=== PATIENT | male | born 1980 | race Caucasian/White ===

== ENCOUNTER 2019-03-20 17:01 | Emergency (ER) | payer MEDICAID ==
[~2019-03-20] VITALS: Ht 193 cm; Wt 99.3 kg
--- NOTE | 2019-03-20 17:57 | NUR ---
PT CAME FROM HOME BROUGHT IN TO ED W LEFT LEG DRESSING. POSSIBLE LACERATION. NOTED BILATERAL FOOT EDEMA. ELEVATED W PILLOW. PT'S ABDOMEN DISTENDED. IV 20G RAC LAC. BROTHER AT BEDSIDE.
[2019-03-20] MEDS ORDERED: LIDOCAINE 1%-EPI 1:100,000 20 ML VIAL ONE (18:13)
--- NOTE | 2019-03-20 18:20 | NUR ---
PT'S ASLEEP,AROUSABLE, VERBALLY ABUSIVE TO STAFF, DOESNT FOLLOW COMMANDS, YELLING, CURSING THE STAFF.
--- NOTE | 2019-03-20 18:20 | NUR ---
REMOVED DRESSING ON LEFT LEG. NOTED WOUND 3X2 CM. NOT ACTIVELY BLEEDING AT THIS TIME. CLEANS THE WOUND W SALINE. PREP FOR LAC REPAIR.
[2019-03-20 18:27] LABS: BASOPHILS # (AUTO) 0.1 /CMM (0.0-0.2); BASOPHILS % (AUTO) 0.7 % (0.0-2.0); EOSINOPHILS % (AUTO) 3.7 % (0.0-6.0); HEMATOCRIT 40 % (39-51); HEMOGLOBIN 13.5 g/dL (13.5-17.5); LYMPHOCYTES # (AUTO) 4.4 /CMM (0.8-4.8); MEAN CORPUSCULAR HGB CONC 34 g/dl (31.0-36.0); MEAN CORPUSCULAR VOLUME 91 fL (80-96); MONOCYTES % (AUTO) 9.9 % (2.0-12.0); NEUTROPHILS # (AUTO) 4.6 /CMM (1.8-8.9); NEUTROPHILS % (AUTO) 43.7 % (43.0-81.0); PLATELET COUNT (AUTO) 258 /CMM (150-450); RED BLOOD CELL COUNT(AUTO) 4.37 MIL/uL (4.5-6.0); WHITE BLOOD COUNT (AUTO) 10.4 K/uL (4.3-11.0)
[2019-03-20] MEDS ORDERED: IV NS 0.9% 1,000 ML BAG IV ONE ×2 (18:30→20:30)
[2019-03-20 18:32] LABS: CALCIUM, SERUM 8.5 mg/dL (8.5-10.1); CARBON DIOXIDE 23 mmol/L (21-32); CHLORIDE 107 mmol/L (98-107); CREATININE 1.4 mg/dL (0.6-1.3); GLUCOSE 154 mg/dL (74-106); POTASSIUM 3.8 mmol/L (3.5-5.1); SODIUM SERUM 136 mmol/L (136-145); UREA NITROGEN, BLOOD 10 mg/dL (7-18)
[2019-03-20 18:38] LABS: ALANINE AMINOTRANSFERASE 77 U/L (12-78); ALKALINE PHOSPHATASE 68 U/L (46-116); ASPARTATE AMINOTRANSFERASE 38 U/L (15-37); BILIRUBIN,DIRECT 0.1 mg/dL (0.0-0.2); BILIRUBIN,TOTAL 0.4 mg/dL (0.2-1.0); TOTAL PROTEIN, SERUM 6.4 g/dL (6.4-8.2)
--- NOTE | 2019-03-20 19:20 | NUR ---
TRANSFER CARE REPORT TO [facility]
[2019-03-20] MEDS ORDERED: BACITRACIN ZINC OINT PACKET 1 EA PACKET TP ONE (19:30)
--- NOTE | 2019-03-20 20:35 | NUR ---
end time for ns: [id number]
--- NOTE | 2019-03-20 20:45 | NUR ---
pt was picked up for ct scan. then received a call from radiology dpt reporting that the pt got agitated, stood up willing to leave and refused the CT. pt was caryl back to the room.
--- NOTE | 2019-03-20 20:53 | NUR ---
Patient does not wish to proceed with medical care recommended by Dr. Powell. Patient given information related to possible complications, up to and including , which could occur as a result of leaving the hospital at this time. Patient and son- in -law verbalized understanding of risks involved due to leaving against medical advice. Patient has signed AMA form. IV removed. Catheter intact and site benign. Pressure and 4x4 applied to site. No bleeding noted. VSS at this time. Md aware of the situation.
--- NOTE | 2019-03-20 20:55 | NUR ---
pt able to transfer himself from bed to w/c. pt was assisted to the car by w/c. Patient discharged to home . Written and verbal after care instructions given. Patient verbalizes understanding of instruction.
[2019-03-20 21:01] VITALS: BP 131/78
== END 2019-03-20 21:01 | disposition left against medical advice (07) ==
LOC: ER 17:05
DX: S81.802A Unspecified open wound, left lower leg, initial encounter (principal); F15.10 Other stimulant abuse, uncomplicated; R55 Syncope and collapse; F32.9 Major depressive disorder, single episode, unspecified; F90.9 Attention-deficit hyperactivity disorder, unspecified type; X58.XXXA Exposure to other specified factors, initial encounter; Y93.89 Activity, other specified; Y92.89 Other specified places as the place of occurrence of the external cause; Y99.8 Other external cause status
CPT/HCPCS: 36415; 71045; 80048; 80076; 84484; 85025; 85730; 93005; 96360; 96361; 99284; A6403; J3490; J7030

== ENCOUNTER 2021-11-24 14:21 | Emergency (ER) | payer OTHER ==
[~2021-11-24] VITALS: Ht 193 cm; Wt 141.1 kg
--- NOTE | 2021-11-24 14:30 | NUR ---
BIB [facility],C/O LEFT LEG PAIN 11/03,FELL OFF A LADDER YESTERDAY. NO APPARENT DEFORMITY NOTED. WILL CONTINUE TO MONITOR THE PATIENT.
--- NOTE | 2021-11-24 15:09 | NUR ---
X-RAY TECH AT THE BEDSIDE
[2021-11-24] MEDS ORDERED: IBUP-1957 PO (16:55)
--- NOTE | 2021-11-24 17:05 | NUR ---
CALLED [facility] AND SET UP BLS TRANSPORT ETA 1800
--- NOTE | 2021-11-24 19:06 | NUR ---
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
--- NOTE | 2021-11-24 19:07 | NUR ---
REPORT GIVEN TO AMBULANCE STAFF
--- NOTE | 2021-11-24 19:08 | NUR ---
Patient discharged to home in stable condition. Written and verbal after care instructions given. Patient verbalizes understanding of instruction.
[2021-11-24 19:11] VITALS: BP 135/86
== END 2021-11-24 19:11 | disposition home or self-care (01) ==
LOC: ER 14:22
DX: S80.12XA Contusion of left lower leg, initial encounter (principal); F32.A Depression, unspecified; Z60.2 Problems related to living alone; Z79.1 Long term (current) use of non-steroidal anti-inflammatories (NSAID); W11.XXXA Fall on and from ladder, initial encounter; Y93.89 Activity, other specified; Y92.89 Other specified places as the place of occurrence of the external cause; Y99.8 Other external cause status
CPT/HCPCS: 73564-TC; 73590-TC; 73610-TC; 93971-TC

== ENCOUNTER 2023-02-08 16:48 | Inpatient (IN) | payer OTHER ==
[~2023-02-08] VITALS: Ht 193 cm; Wt 131.1 kg
[~2023-02-08 16:48] MED LIST: CLIN300C12 PO; IBUP-1957 PO
[2023-02-08] MEDS ORDERED: IV NS 0.9% 1,000 ML BAG IV ONE (17:30)
[2023-02-08] MEDS ORDERED: ACETAMINOPHEN ES 500 MG TABLET PO ONE (17:30)
[2023-02-08] MEDS ORDERED: ACETAMINOPHEN ES 500 MG TABLET ONE (17:53)
[2023-02-08] MEDS ORDERED: HYDR25TA4 PO (18:06)
[2023-02-08] MEDS ORDERED: CEFTRIAXONE 1GM BAG (ER ONLY) 50 ML IV ONE (18:06)
[2023-02-08 18:11] LABS: BASOPHILS % (AUTO) 0.1 % (0.0-2.0); EOSINOPHILS # (AUTO) 0.1 K/uL (0.0-0.7); EOSINOPHILS % (AUTO) 0.3 % (0.0-6.0); HEMATOCRIT 42 % (39-51); LYMPHOCYTES # (AUTO) 2.2 K/uL (0.8-4.8); LYMPHOCYTES % (AUTO) 7.6 % (20.0-44.0); MEAN CORPUSCULAR HEMOGLOBIN 30 PG (26.0-33.0); MEAN CORPUSCULAR HGB CONC 33 g/dl (31.0-36.0); MEAN CORPUSCULAR VOLUME 90 fL (80-96); MONOCYTES # (AUTO) 1.9 K/uL (0.1-1.30); MONOCYTES % (AUTO) 6.4 % (2.0-12.0); NEUTROPHILS # (AUTO) 24.8 K/uL (1.8-8.9); NEUTROPHILS % (AUTO) 85.6 % (43.0-81.0); PLATELET COUNT (AUTO) 269 K/uL (150-450); RED BLOOD CELL COUNT(AUTO) 4.71 MIL/uL (4.5-6.0)
[2023-02-08 18:24] LABS: INR 1.06 (0.91-1.10); PARTIAL THROMBOPLASTIN TIME 28.8 SEC (24.3-34.3); PROTHROMBIN TIME 11.1 SECS (9.2-11.1)
[2023-02-08 18:29] LABS: CALCIUM, SERUM 8.8 mg/dL (8.5-10.1); CARBON DIOXIDE 28 mmol/L (21-32); CHLORIDE 101 mmol/L (98-107); CREATININE 1.1 mg/dL (0.6-1.3); GLUCOSE 108 mg/dL (74-106); LACTIC ACID 1.8 mmol/L (0.4-2.0); POTASSIUM 3.7 mmol/L (3.5-5.1); SODIUM SERUM 137 mmol/L (136-145); UREA NITROGEN, BLOOD 9 mg/dL (7-18)
[2023-02-08] MEDS ORDERED: AZITHROMYCIN 500 MG in IV D5W 250 ML IV ONE (18:30)
[2023-02-08] MEDS ORDERED: CEFTRIAXONE 1GM BAG (ER ONLY) 1 GM/50 ML PIGGYBACK IV ONE (18:30)
[2023-02-08 18:35] LABS: ALANINE AMINOTRANSFERASE 67 U/L (12-78); ALBUMIN 3.6 g/dL (3.4-5.0); ALKALINE PHOSPHATASE 98 U/L (46-116); ASPARTATE AMINOTRANSFERASE 37 U/L (15-37); BILIRUBIN,DIRECT 0.3 mg/dL (0.0-0.2); BILIRUBIN,TOTAL 1.2 mg/dL (0.2-1.0); TOTAL PROTEIN, SERUM 8.6 g/dL (6.4-8.2)
[2023-02-08 19:22] LABS: APPEARANCE,URINE CLEAR (CLEAR); BILIRUBIN,URINE NEGATIVE (NEGATIVE); BLOOD, URINE NEGATIVE Ery/uL (NEGATIVE); COLOR,URINE YELLOW (YELLOW); KETONES,URINE NEGATIVE (NEGATIVE); LEUKOCYTE ESTERASE ,URINE NEGATIVE (NEGATIVE); NITRITE, URINE NEGATIVE (NEGATIVE); PH,URINE 8.5 (5.0-8.0); PROTEIN,URINE 1+ mg/dl (NEGATIVE); UGLUCOSE NEGATIVE (NEGATIVE)
[2023-02-08 19:51] LABS: BAND % (MANUAL) 4 % (0.0-5.0); EOSINOPHILS % (MANUAL) 1 % (0-4); LYMPHOCYTES % (MANUAL) 8 % (16-48); MONOCYTES % (MANUAL) 4 % (0-11.0); NEUTROPHILS % (MANUAL) 83 (42-76); PLATELET ESTIMATE ADEQUATE
[2023-02-08 20:19] LABS: ADD URINE CULTURE NO; BACTERIA,URINE None seen /HPF (None Seen); MUCUS,URINE Few /LPF (None Seen); RBC,URINE NONE SEEN /HPF (0-2); SQUAMOUS EPITHELIAL CELL,UR 0-2 /HPF (None Seen); WBC,URINE 0-2 /HPF (0-3)
[2023-02-08 22:05] VITALS: BP 152/90; TEMP 102.5; O2SAT 92; O2SAT 94
[2023-02-08] MEDS: ENOXAPARIN SODIUM 40 MG/0.4 ML DISP.SYRIN SQ SCH ×2 (22:30→23:59)
[2023-02-08] MEDS ORDERED: IBUPROFEN 400 MG TABLET PO PRN (22:30)
[2023-02-08] MEDS: ACETAMINOPHEN 325 MG TABLET PO PRN (23:53)
[2023-02-08] MEDS: IV NS 0.9% 1,000 ML IV PRN (23:54)
[2023-02-09] MEDS: ACETAMINOPHEN 325 MG TABLET PO PRN ×3 (01:02→10:19)
[2023-02-09 04:00] VITALS: BP 155/91; TEMP 102.1; O2SAT 93
[2023-02-09 05:25] LABS: ABG BASE EXCESS 0.2 mmol/L; ABG OXYGEN SATURATION 96.6 % (92.0-98.5); ABG PCO2 32.8 mmHg (35.0-45.0); ABG PH 7.466 (7.350-7.450); ABG PO2 78.7 mmHg (75.0-100.0); ABG TOTAL HEMOGLOBIN 14.7 G/dL (13.5-18.0); AaDO2 139.9 mmHg; COHb 1.2 % (0.5-1.5); MetHb 0.2 % (0.0-1.5); O2Hb 95.2 % (94.0-97.0); SITE, ABG Left Radial
[2023-02-09] MEDS ORDERED: ACETAMINOPHEN 650 MG/SUPP.RECT RC PRN (05:30)
[2023-02-09 06:13] LABS: BASOPHILS % (AUTO) 0.2 % (0.0-2.0); EOSINOPHILS % (AUTO) 0.1 % (0.0-6.0); HEMATOCRIT 37 % (39-51); HEMOGLOBIN 12.6 g/dL (13.5-17.5); LYMPHOCYTES # (AUTO) 1.5 K/uL (0.8-4.8); LYMPHOCYTES % (AUTO) 6.9 % (20.0-44.0); MEAN CORPUSCULAR HEMOGLOBIN 30 PG (26.0-33.0); MEAN CORPUSCULAR HGB CONC 34 g/dl (31.0-36.0); MEAN CORPUSCULAR VOLUME 90 fL (80-96); MONOCYTES # (AUTO) 0.8 K/uL (0.1-1.30); NEUTROPHILS % (AUTO) 88.8 % (43.0-81.0); PLATELET COUNT (AUTO) 204 K/uL (150-450); RED BLOOD CELL COUNT(AUTO) 4.15 MIL/uL (4.5-6.0); RED CELL DISTRIBUTION WIDTH 13.9 % (11.5-15.0); WHITE BLOOD COUNT (AUTO) 21.3 K/uL (4.3-11.0)
[2023-02-09 06:40] LABS: CALCIUM, SERUM 7.7 mg/dL (8.5-10.1); MAGNESIUM 1.7 mg/dL (1.8-2.4); PHOSPHORUS 1.9 mg/dL (2.5-4.9); POTASSIUM 3.2 mmol/L (3.5-5.1)
[2023-02-09 08:00] VITALS: BP 125/75; TEMP 101; O2SAT 93
[2023-02-09] MEDS ORDERED: Z GUARD REMEDY 4 OZ OINT TP PRN (10:00)
[2023-02-09] MEDS: Z GUARD REMEDY 4 OZ OINT TP SCH (10:22)
[2023-02-09] MEDS ORDERED: POTASSIUM CHLORIDE 20 MEQ TAB.PRT.SR PO ONE (10:30)
[2023-02-09] MEDS ORDERED: MAGNESIUM OXIDE 400 MG TABLET PO ONE (10:30)
[2023-02-09] MEDS ORDERED: K PHOS NEUTRAL 250 MG TABLET PO ONE (11:30)
[2023-02-09 12:00] VITALS: BP 126/72; TEMP 100.7; O2SAT 93
[2023-02-09] MEDS: BACITRACIN ZINC OINT (15 GM) 15 GM TUBE TP SCH (12:50)
[2023-02-09 16:00] VITALS: BP 137/76; TEMP 97.1; O2SAT 93
[2023-02-09] MEDS: CEFTRIAXONE 1 G in IV D5W 50 ML IV SCH (17:51)
[2023-02-09] MEDS: IV NS 0.9% 1,000 ML IV PRN (17:51)
[2023-02-09] MEDS: AZITHROMYCIN 500 MG in IV D5W 250 ML IV SCH (17:51)
[2023-02-09] MEDS ORDERED: VANCOMYCIN 1 GM in IV D5W 250ml IV ONE ×3 (18:30→20:30)
[2023-02-09 20:00] VITALS: BP 133/78; TEMP 98.3; O2SAT 98
[2023-02-09] MEDS: ENOXAPARIN SODIUM 40 MG/0.4 ML DISP.SYRIN SQ SCH (21:05)
[2023-02-10] MEDS: VANCOMYCIN 1.25 GM in IV D5W 250 ML IV SCH ×3 (03:52→20:33)
[2023-02-10 04:00] VITALS: BP 135/72; TEMP 98.6; O2SAT 98
[2023-02-10 07:22] LABS: CREATININE 0.9 mg/dL (0.6-1.3); MAGNESIUM 2.1 mg/dL (1.8-2.4); POTASSIUM 3.9 mmol/L (3.5-5.1)
[2023-02-10] MEDS: Z GUARD REMEDY 4 OZ OINT TP SCH (08:05)
[2023-02-10] MEDS: OLANZAPINE 5 MG TABLET PO SCH ×2 (09:09→16:38)
[2023-02-10] MEDS: DIVALPROEX SODIUM 125 MG TABLET.DR PO SCH ×2 (09:12→20:36)
[2023-02-10 12:00] VITALS: BP 130/69; TEMP 98.7; O2SAT 98
[2023-02-10] MEDS: BACITRACIN ZINC OINT (15 GM) 15 GM TUBE TP SCH (12:30)
[2023-02-10 12:33] LABS: BARBITURATE, URINE NEGATIVE (NEGATIVE); BENZODIAZEPINE, URINE NEGATIVE (NEGATIVE); CANNABINOID, URINE NEGATIVE (NEGATIVE); COCCAINE, URINE NEGATIVE (NEGATIVE); OPIATE, URINE NEGATIVE (NEGATIVE); PHENCYCLIDINE SCREEN,URINE NEGATIVE (NEGATIVE)
[2023-02-10 12:52] LABS: AMPHETAMINE, URINE POSITIVE (NEGATIVE)
[2023-02-10] MEDS: CEFTRIAXONE 1 G in IV D5W 50 ML IV SCH (17:02)
[2023-02-10] MEDS: AZITHROMYCIN 500 MG in IV D5W 250 ML IV SCH (17:02)
[2023-02-10 20:00] VITALS: BP 158/103; TEMP 98.4; O2SAT 100
[2023-02-10] MEDS: ENOXAPARIN SODIUM 40 MG/0.4 ML DISP.SYRIN SQ SCH ×3 (20:36→21:00)
[2023-02-11 04:00] VITALS: BP 145/65; TEMP 98.2; O2SAT 98
[2023-02-11] MEDS: VANCOMYCIN 1.5 GM in IV D5W 500ml IV SCH ×3 (04:45→20:23)
[2023-02-11 06:24] LABS: BASOPHILS % (AUTO) 0.4 % (0.0-2.0); EOSINOPHILS # (AUTO) 0.5 K/uL (0.0-0.7); EOSINOPHILS % (AUTO) 4.7 % (0.0-6.0); HEMATOCRIT 43 % (39-51); HEMOGLOBIN 14.6 g/dL (13.5-17.5); LYMPHOCYTES # (AUTO) 2.8 K/uL (0.8-4.8); LYMPHOCYTES % (AUTO) 26.7 % (20.0-44.0); MEAN CORPUSCULAR HEMOGLOBIN 30 PG (26.0-33.0); MEAN CORPUSCULAR HGB CONC 34 g/dl (31.0-36.0); MEAN CORPUSCULAR VOLUME 89 fL (80-96); MONOCYTES # (AUTO) 1.1 K/uL (0.1-1.30); MONOCYTES % (AUTO) 10.4 % (2.0-12.0); NEUTROPHILS # (AUTO) 6.1 K/uL (1.8-8.9); NEUTROPHILS % (AUTO) 57.8 % (43.0-81.0); PLATELET COUNT (AUTO) 205 K/uL (150-450); RED CELL DISTRIBUTION WIDTH 13.8 % (11.5-15.0); WHITE BLOOD COUNT (AUTO) 10.5 K/uL (4.3-11.0)
[2023-02-11 06:50] LABS: CALCIUM, SERUM 8.8 mg/dL (8.5-10.1); CREATININE 0.7 mg/dL (0.6-1.3); POTASSIUM 3.9 mmol/L (3.5-5.1)
[2023-02-11] MEDS: OLANZAPINE 5 MG TABLET PO SCH ×2 (08:58→16:44)
[2023-02-11] MEDS: Z GUARD REMEDY 4 OZ OINT TP SCH (08:58)
[2023-02-11] MEDS: DIVALPROEX SODIUM 125 MG TABLET.DR PO SCH ×2 (08:58→21:24)
[2023-02-11] MEDS: IV NS 0.9% 1,000 ML IV PRN (11:50)
[2023-02-11 12:00] VITALS: BP 138/72; TEMP 98.5; O2SAT 98
[2023-02-11] MEDS: BACITRACIN ZINC OINT (15 GM) 15 GM TUBE TP SCH (13:23)
[2023-02-11] MEDS: CEFTRIAXONE 1 G in IV D5W 50 ML IV SCH (17:27)
[2023-02-11] MEDS: AZITHROMYCIN 500 MG in IV D5W 250 ML IV SCH (18:03)
[2023-02-11 20:00] VITALS: TEMP 97.6
[2023-02-11] MEDS: ENOXAPARIN SODIUM 40 MG/0.4 ML DISP.SYRIN SQ SCH (21:27)
[2023-02-12 04:00] VITALS: BP 128/70; TEMP 97.6
[2023-02-12] MEDS: VANCOMYCIN 1.5 GM in IV D5W 500ml IV SCH (04:00)
[2023-02-12] MEDS: IV NS 0.9% 1,000 ML IV PRN ×2 (04:45→15:38)
[2023-02-12] MEDS: Z GUARD REMEDY 4 OZ OINT TP SCH (09:01)
[2023-02-12] MEDS: DIVALPROEX SODIUM 125 MG TABLET.DR PO SCH ×2 (09:01→21:43)
[2023-02-12] MEDS: OLANZAPINE 5 MG TABLET PO SCH ×2 (09:01→17:14)
[2023-02-12 12:00] VITALS: BP_SYST 115; BP_SYST 128; BP_DIAS 70; BP_DIAS 98; TEMP 97.7; O2SAT 96; O2SAT 98
[2023-02-12] MEDS: BACITRACIN ZINC OINT (15 GM) 15 GM TUBE TP SCH (13:05)
[2023-02-12 20:00] VITALS: BP 128/70; TEMP 97.7; O2SAT 98
[2023-02-12] MEDS: ENOXAPARIN SODIUM 40 MG/0.4 ML DISP.SYRIN SQ SCH ×2 (21:00→21:42)
[2023-02-13 04:00] VITALS: BP 128/70; TEMP 97.7; O2SAT 98
[2023-02-13] MEDS: VANCOMYCIN 1.25 GM in IV D5W 250 ML IV SCH ×2 (09:00→17:13)
[2023-02-13] MEDS: OLANZAPINE 5 MG TABLET PO SCH ×2 (10:03→17:13)
[2023-02-13] MEDS: DIVALPROEX SODIUM 125 MG TABLET.DR PO SCH ×2 (10:03→21:10)
[2023-02-13] MEDS: BACITRACIN ZINC OINT (15 GM) 15 GM TUBE TP SCH (13:19)
[2023-02-13] MEDS: Z GUARD REMEDY 4 OZ OINT TP SCH (13:19)
[2023-02-13 17:25] LABS: CALCIUM, SERUM 8.8 mg/dL (8.5-10.1); CREATININE 0.7 mg/dL (0.6-1.3)
[2023-02-13 20:00] VITALS: BP 162/95; TEMP 98.2; O2SAT 98
[2023-02-13] MEDS: ENOXAPARIN SODIUM 40 MG/0.4 ML DISP.SYRIN SQ SCH (21:12)
[2023-02-14] MEDS: VANCOMYCIN 1.25 GM in IV D5W 250 ML IV SCH ×2 (00:38→09:06)
[2023-02-14 04:00] VITALS: BP 132/70; TEMP 97.8; O2SAT 96
[2023-02-14 06:42] LABS: CALCIUM, SERUM 6.9 mg/dL (8.5-10.1); CREATININE 0.5 mg/dL (0.6-1.3)
[2023-02-14 07:30] VITALS: BP 127/97; TEMP 98.7; O2SAT 94
[2023-02-14] MEDS: DIVALPROEX SODIUM 125 MG TABLET.DR PO SCH ×2 (09:06→21:39)
[2023-02-14] MEDS: OLANZAPINE 5 MG TABLET PO SCH ×2 (09:06→16:40)
[2023-02-14] MEDS ORDERED: FURO-145 PO (09:13)
[2023-02-14] MEDS ORDERED: SULF1TAB48 PO (09:13)
[2023-02-14] MEDS ORDERED: DIVA125T2 PO (09:13)
[2023-02-14] MEDS: Z GUARD REMEDY 4 OZ OINT TP SCH (09:19)
[2023-02-14] MEDS ORDERED: POTASSIUM CHLORIDE 20 MEQ TAB.PRT.SR PO ONE (10:00)
[2023-02-14] MEDS: BACITRACIN ZINC OINT (15 GM) 15 GM TUBE TP SCH (12:47)
[2023-02-14] MEDS: IV NS 0.9% 1,000 ML IV PRN (14:35)
[2023-02-14 16:00] VITALS: BP 134/101; TEMP 99.6; O2SAT 95
[2023-02-14 20:00] VITALS: BP 126/93; TEMP 99; O2SAT 94
[2023-02-14] MEDS: ENOXAPARIN SODIUM 40 MG/0.4 ML DISP.SYRIN SQ SCH (21:00)
[2023-02-14] MEDS: SULFAMETH/TRIMETH 800/160 MG 1 UDTAB TABLET PO SCH (21:39)
[2023-02-15 04:00] VITALS: BP 144/91; TEMP 98.1; O2SAT 97
[2023-02-15 08:00] VITALS: BP 130/60; TEMP 98.3; O2SAT 100
[2023-02-15 08:29] LABS: CREATININE 0.7 mg/dL (0.6-1.3)
[2023-02-15 08:33] LABS: CALCIUM, SERUM 8.8 mg/dL (8.5-10.1)
[2023-02-15] MEDS: DIVALPROEX SODIUM 125 MG TABLET.DR PO SCH ×2 (08:35→21:27)
[2023-02-15] MEDS: SULFAMETH/TRIMETH 800/160 MG 1 UDTAB TABLET PO SCH ×2 (08:35→21:27)
[2023-02-15] MEDS: OLANZAPINE 5 MG TABLET PO SCH ×3 (08:35→16:25)
[2023-02-15] MEDS: Z GUARD REMEDY 4 OZ OINT TP SCH (09:24)
[2023-02-15] MEDS: BACITRACIN ZINC OINT (15 GM) 15 GM TUBE TP SCH (12:21)
[2023-02-15 16:00] VITALS: BP 128/67; TEMP 98.7; O2SAT 100
[2023-02-15] MEDS: IV NS 0.9% 1,000 ML IV PRN (17:03)
[2023-02-15 20:00] VITALS: BP 147/99; TEMP 98.8; O2SAT 92
[2023-02-15] MEDS: ENOXAPARIN SODIUM 40 MG/0.4 ML DISP.SYRIN SQ SCH (21:00)
[2023-02-16 01:24] VITALS: BP 143/92; TEMP 98.5; O2SAT 94
[2023-02-16 08:00] VITALS: BP 149/67; TEMP 98.2; O2SAT 91
[2023-02-16] MEDS: SULFAMETH/TRIMETH 800/160 MG 1 UDTAB TABLET PO SCH (08:13)
[2023-02-16] MEDS: OLANZAPINE 5 MG TABLET PO SCH (08:13)
[2023-02-16] MEDS: DIVALPROEX SODIUM 125 MG TABLET.DR PO SCH (08:13)
[2023-02-16] MEDS: Z GUARD REMEDY 4 OZ OINT TP SCH (08:14)
== END 2023-02-16 09:00 | disposition left against medical advice (07) | DRG 720 ==
LOC: ER 16:55 → TELE1 21:23 → MEDSG1 02-09 11:55 → MED 02-16 00:15
PROVIDERS: ADMIT Nurse Practitioner Acute Care; ATTEND Nurse Practitioner Family
PROC: 05HB33Z Insertion of Infusion Device into Right Basilic Vein, Percutaneous Approach (ICD-10-PCS; principal; 2023-02-13)
DX: A41.9 Sepsis, unspecified organism (principal); J96.01 Acute respiratory failure with hypoxia; G93.41 Metabolic encephalopathy; T67.01XA Heatstroke and sunstroke, initial encounter; D68.59 Other primary thrombophilia; R65.20 Severe sepsis without septic shock; L03.116 Cellulitis of left lower limb; L02.416 Cutaneous abscess of left lower limb; I87.2 Venous insufficiency (chronic) (peripheral); F90.9 Attention-deficit hyperactivity disorder, unspecified type; Z79.899 Other long term (current) drug therapy; Z59.00 Homelessness unspecified; Z20.822 Contact with and (suspected) exposure to COVID-19; E66.01 Morbid (severe) obesity due to excess calories; I10 Essential (primary) hypertension; Z68.35 Body mass index [BMI] 35.0-35.9, adult; F32.9 Major depressive disorder, single episode, unspecified; A49.02 Methicillin resistant Staphylococcus aureus infection, unspecified site; S81.802A Unspecified open wound, left lower leg, initial encounter; S81.801A Unspecified open wound, right lower leg, initial encounter; X58.XXXA Exposure to other specified factors, initial encounter; Y92.9 Unspecified place or not applicable; X30.XXXA Exposure to excessive natural heat, initial encounter; Y92.512 Supermarket, store or market as the place of occurrence of the external cause
CPT/HCPCS: 36410; 36415; 36600; 70450-TC; 71045-TC; 80048-TC; 80076-TC; 80202-TC; 81001; 82550-TC; 82803-TC; 83605-TC; 83735-TC; 84100-TC; 84484-TC; 85025-TC; 85652-TC; 85730-TC; 86140-TC; 87040-TC; 87086-TC; 92526; 92611-TC; 93307-TC; 93970-TC; 97116-TC; 97530-TC; A4223; A6253; A6403; C9803; G0378; J0456; J0696; J1650; J3370; J7030; J7050; J7060

== ENCOUNTER 2023-05-11 19:18 | Emergency (ER) | payer OTHER ==
[~2023-05-11] VITALS: Ht 185.4 cm; Wt 131.5 kg
[~2023-05-11 19:18] MED LIST changes: -CLIN300C12 PO; +DIVA125T2 PO; +FURO-145 PO; -IBUP-1957 PO; +SULF1TAB48 PO
[2023-05-11] MEDS ORDERED: KETOROLAC TROMETHAMINE INJ 60 MG/2 ML VIAL IM ONE (23:39)
[2023-05-11] MEDS: KETOROLAC TROMETHAMINE INJ 60 MG/2 ML VIAL IM ONE (23:40)
[2023-05-12] MEDS ORDERED: KETO10TA2 PO
[2023-05-12 00:08] VITALS: BP 138/88; TEMP 98; O2SAT 98
== END 2023-05-12 01:26 | disposition home or self-care (01) ==
LOC: ER 19:23
DX: M79.18 Myalgia, other site (principal); I10 Essential (primary) hypertension; F31.9 Bipolar disorder, unspecified; Z79.899 Other long term (current) drug therapy; Z60.2 Problems related to living alone
CPT/HCPCS: 99284; 96372; 73552; 73564; J1885